=== PATIENT | male | born 1985 | race Caucasian/White ===

== ENCOUNTER → 2020-04-12 19:20 | Outpatient (CLI) | payer OTHER, SELFPAY ==
[2020-04-12 20:10] LABS: Strep Scrn Group A (Rapid) Negative (Negative)
[2020-04-14 13:37] LABS: Covid-19 Nasal PCR Sendout Lex NOT DETECTED
== END ==
PROVIDERS: PCP Nurse Practitioner; Visit Provider Nurse Practitioner
DX: Z03.818 Encounter for observation for suspected exposure to other biological agents ruled out (principal)
CPT/HCPCS: 87430; U0004

== ENCOUNTER 2020-07-04 20:38 | Emergency (ER) | payer OTHER, SELFPAY ==
[2020-07-04 20:45] VITALS: BP 122/93; PULSE 99; RESP 20; TEMP 37; O2SAT 98; BMI 25.1
--- NOTE | 2020-07-04 21:00 | HMH.EDUTC ---
[facility] [place] Clinical Impression: Encounter for laboratory testing for COVID-19 virus Disposition: Home, Self-Care Condition on Discharge: Good Instructions: DI for COVID-19 (Suspected or Confirmed ), Coronavirus Disease 2019, Preventing the Spread of Coronavirus Discharge Instructions Additional Instructions: *Monitor Temp, Over the counter Motrin or Tylenol as directed/as needed Tylenol every 4 hours and Motrin every 6 hours (as long as your family doctor has told you that you can take it) for fever or pain. and straight to ER if unable to lower temp less than 101.0 after medication given Makes sure that you are drinking plenty of fluids like water and gatoraid to help with fluid loss from diarrhea ? Avoid fruit juices, as these do not replace minerals and can actually increase diarrhea. ? Children and adults can use sports drinks to replenish electrolytes. Younger children and infants should use products formulated for children, like oral rehydration solutions. ? Eat food in small amounts and let your stomach recover. ? Get lots of rest. You may feel tired or weak. ? No greasy or fried foods for the next 24-48 hours BRAT diet Bananas Rice Apples and [place] ? Make sure to drink plenty of liquids ? Return if needed ? Straight to ER if any life threatening symptoms ? Follow up with family doctor in the next 48-72 hours if no improvement or any worsening of symptoms Follow up IMMEDIATELY for new or worsening symptoms or no Noticeable improvement over the next 48-72 hours. 911 for difficulty breathing or swallowing You were tested for today for COVID19 your test result should be back in the next 24-48 hours, you may call to the [facility] to see if your test results are back in the next 48 hours [phone] [facility] hours are 9am-9pm You was given a handout with instructions for Self Quarantine and Self isolation for while you wait on test results and what to do if they are positive If you are positive the Health Dept will be contacting you also Referrals: Cm Cunningham MD [Primary Care Provider] - As needed Forms: Work/School Release Time of Disposition: 21:07 Medical Decision Making - Jose R Inquiry Pt receiving controlled substance: No Jose R was queried for this patient: No Vital Signs: 07/04/20 20:45 Temperature 98.6 F Temperature Source Oral Pulse Rate [Right Brachial] 99 H Respiratory Rate 20 Blood Pressure [Right Arm] 122/93 H Blood Pressure Mean [Right Arm] 102 Blood Pressure Source [Right Arm] Automatic Cuff Blood Pressure Position [Right Arm] Sitting 02 Sat by Pulse Oximetry 98 Oxygen Delivery Method Room Air Orders (Tests/Meds): ORDERS Category Date Time Status Covid-19 Nasal PCR ([facility]) Routine Lab 07/04/20 20:45 Received [facility] [place] - General Stated complaint: covid test Time Seen by Provider: 07/04/20 21:00 Mode of Arrival: Ambulatory Source of Information: Patient Limitations: No Limitations Description of Symptoms (Recalled from Triage Doc. by RN): PATIENT REQUESTING COVID TEST. 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
[2020-07-04 21:04] VITALS: BP 122/93; PULSE 99; RESP 20; TEMP 37; O2SAT 98
--- NOTE | 2020-07-05 14:39 | PC.NURSE ---
PATIENT NOTIFIED OF POSITIVE COVID RESULTS
== END 2020-07-04 21:10 | disposition home or self-care (01) ==
PROVIDERS: Emergency Provider Nurse Practitioner; PCP Family Medicine
DX: U07.1 COVID-19 (principal)
CPT/HCPCS: 99202; G0463; U0003

== ENCOUNTER 2020-10-04 16:04 | Emergency (ER) | payer OTHER, SELFPAY ==
--- NOTE | 2020-10-04 16:00 | ECG_ITS ---
APPROVED REPORT Exam: Resting ECG HR:105 bpm ECG Measurements Heart Rate 105 AXES UT 134 P 46 QRSd 82 QRS 9 QT 324 T 14 QTc 428 Conclusion Sinus tachycardia Otherwise normal ECG Electronically signed by : Klever Barahona, 10/04/2020 18:03:13
[2020-10-04 16:05] VITALS: BP 156/103; PULSE 105; RESP 18; O2SAT 98; BMI 26.4
--- NOTE | 2020-10-04 16:27 | XR_ITS ---
PROCEDURE INFORMATION: Exam: XR Chest Exam date and time: 10/04/2020 4:27 PM Age: 35 years old Clinical indication: Other: Chest pain TECHNIQUE: Imaging protocol: XR of the chest. Views: 1 view. COMPARISON: No relevant prior studies available. FINDINGS: Lungs: Granulomatous changes. No consolidation. Pleural spaces: Unremarkable. No pleural effusion. No pneumothorax. Heart/Mediastinum: Unremarkable. No cardiomegaly. Bones/joints: Unremarkable. IMPRESSION: No acute findings.
--- NOTE | 2020-10-04 16:28 | CT_ITS ---
PROCEDURE INFORMATION: Exam: CTA Chest With Contrast Exam date and time: 10/04/2020 4:28 PM Age: 35 years old Clinical indication: Patient HX: Chest pain x 2 weeks; Additional info: Chest pain into back TECHNIQUE: Imaging protocol: Computed tomographic angiography of the chest with contrast. 3D rendering (Not supervised by radiologist): MIP and/or 3D reconstructed images were created by the technologist. Radiation optimization: All CT scans at this facility use at least one of these dose optimization techniques: automated exposure control; mA and/or kV adjustment per patient size (includes targeted exams where dose is matched to clinical indication); or iterative reconstruction. Contrast material: ISOVUE 370; Contrast volume: 70 ml; Contrast route: INTRAVENOUS (IV); COMPARISON: CR XR CHEST PORTABLE 10/04/2020 5:03 PM FINDINGS: Pulmonary arteries: Normal. No pulmonary emboli. Aorta: Unremarkable. No aortic aneurysm. No aortic dissection. Lungs: Unremarkable. No consolidation. No masses. Pleural spaces: Unremarkable. No pneumothorax. No pleural effusion. Heart: Unremarkable. No cardiomegaly. No pericardial effusion. Lymph nodes: Scattered small lymph nodes. Bones/joints: Unremarkable. No acute fracture. Soft tissues: Unremarkable. IMPRESSION: No acute findings.
--- NOTE | 2020-10-04 16:32 | HMH.EDCP ---
ED Disposition Clinical Impression: Atypical chest pain Disposition: Still a Patient Condition on Discharge: Good Additional Instructions: Continue to use Tylenol and ibuprofen for pain and return to the ED for any new or worsening symptoms. Referrals: PCP,No [Primary Care Provider] - - Critical Care Critical Care Time: No Attestation: On 10/04/20, the high probability of a clinically significant, sudden or life threatening deterioration of the following system(s) required my full and direct attention, intervention and personal management. The time I documented below is in addition to time spent performing reported procedures but includes the following listed in this critical care notation. Medical Decision Making - Medical Records Medical records reviewed: Yes: I reviewed the patient's medical records. - Jose R Inquiry Pt receiving controlled substance: No Vital Signs: 10/04/20 16:05 Pulse Rate [Left Radial] 105 H Respiratory Rate 18 Blood Pressure [Right Arm] 156/103 H Blood Pressure Mean [Right Arm] 120 Blood Pressure Source [Right Arm] Automatic Cuff Blood Pressure Position [Right Arm] Sitting 02 Sat by Pulse Oximetry 98 Oxygen Delivery Method Room Air - Lab Data Lab Results 10/04/20 16:10: WBC 9.9, RBC 4.91, Hgb 14.3, Hct 43.0, MCV 87.7, MCH 29.2, MCHC 33.3, RDW 14.0, Plt Count 369, MPV 6.7 L, Neut % (Auto) 61.1, Lymph % (Auto) 31.0, Bowie % (Auto) 5.6, Eos % (Auto) 1.6, Baso % (Auto) 0.7, Neut # (Auto) 6.1, Lymph # (Auto) 3.1, Bowie # (Auto) 0.6, Eos # (Auto) 0.2, Baso # (Auto) 0.1 10/04/20 16:10: Sodium 139, Potassium 3.5, Chloride 104, Carbon Dioxide 28, Anion Gap 10.5, BUN 7 L, Creatinine 0.70, Estimated Creat Clear 178, Estimated GFR 128, Est GFR ( Amer) 154, Glucose 117 H, Calcium 9.3, Total Bilirubin 0.4, AST 42, ALT 34, Alkaline Phosphatase 76, Troponin I < 0.01, Total Protein 7.3, Albumin 4.4, Globulin 2.9, Albumin/Globulin Ratio 1.5 10/04/20 19:55: Troponin I < 0.01 Result diagrams: 10/04/20 16:10 10/04/20 16:10 Orders (Tests/Meds): ED MEDICATIONS Generic Name Dose Route Start Last Admin Trade Name Freq PRN Reason Stop Dose Admin Nicotine 21 mg 10/04/20 19:04 10/04/20 19:05 Nicotine 21mg/24hr Patch TD 11/03/20 19:03 21 mg DAILYP PRN Administration Nicotine Cravings Discontinued Medications Generic Name Dose Route Start Last Admin Trade Name Freq PRN Reason Stop Dose Admin Hydrocodone Bitart/Acetaminophen 2 tab 10/04/20 17:44 10/04/20 18:01 Hydrocodone/Apap 5/325 Mg Tablet PO 10/04/20 17:45 2 tab ONCE ONE Administration Iopamidol 70 ml 10/04/20 18:41 10/04/20 18:42 Iopamidol-370 (76%);100ml Bottle IV 10/04/20 18:42 70 ml ONCE ONE Administration Sodium Chloride 50 ml 10/04/20 18:41 10/04/20 18:42 0.9 % Sodium Chloride 50 Ml Vial IV 10/04/20 18:42 50 ml ONCE ONE Administration Sodium Chloride 10 ml 10/04/20 18:41 10/04/20 18:42 Sodium Chloride 0.9% 10ml Syr (Rad Only) IV 10/04/20 18:42 10 ml ONCE ONE Administration ORDERS Category Date Time Status CTA Chest [CT angio chest] Stat Cat Scan 10/04/20 16:28 Taken XR chest portable Stat Exams 10/04/20 16:27 Taken Troponin I Q3H Lab 10/04/20 22:30 Ordered Medical Decision Narrative: 35-year-old male who presents with chest pain in his chest and back. Patient's pain is consistent with musculoskeletal however has a concerning pattern. Differential includes musculoskeletal back pain, ACS, aortic dissection, pneumothorax, pneumonia, and others. Chest x-ray is unremarkable with no evidence of pneumonia, pneumothorax or other abnormality. His initial troponin is undetectable and there is no other laboratory data requiring acute correction. He was given [place] for pain and an IV fluid bolus. After interventions patient states that he feels much better. And CTA demonstrated no acute abnormalities concerning for pulmonary embolism or dissection or other a
[2020-10-04 16:46] LABS: Basophils # 0.1 K/mm3 (0-0.2); Basophils % 0.7 % (0.1-2.0); Chloride 104 mmol/L (98-107); Eosinophils # 0.2 K/mm3 (0.0-0.4); Eosinophils % 1.6 % (0.1-12.0); Hemoglobin 14.3 g/dL (14.1-18.0); Lymphocytes # 3.1 K/mm3 (0.7-4.5); Mean Corpuscular HGB Conc 33.3 g/dL (31.8-35.4); Mean Corpuscular Hemoglobin 29.2 pg (27.0-31.2); Mean Corpuscular Volume 87.7 fl (80-94); Mean Platelet Volume 6.7 fl (7.4-10.4); Monocytes # 0.6 K/mm3 (0.1-1.0); Monocytes % 5.6 % (1.7-9.3); Neutrophils # 6.1 K/mm3 (1.8-7.8); Neutrophils % 61.1 % (37.0-80.0); Platelet Count 369 K/mm3 (142-424); Potassium 3.5 mmoL/L (3.5-5.1); Red Blood Count 4.91 M/mm3 (4.60-6.20); Sodium 139 mmol/L (136-145); White Blood Count 9.9 K/mm3 (4.8-10.8)
[2020-10-04 16:48] LABS: Alanine Aminotransferase 34 U/L (12-78); Blood Urea Nitrogen 7 mg/dl (9-20); Creatinine Clearance Estimated 178 mL/min (50-200); Estimated Glomerular Filt Rate 128 ml/min (>60); GFR (African American) 154 ML/MIN (>60)
[2020-10-04 16:49] LABS: Albumin Level 4.4 g/dl (3.5-5.0); Albumin/Globulin Ratio 1.5 (1.1-1.8); Alkaline Phosphatase 76 U/L (38-126); Anion Gap 10.5 mEq/L (5-15); Aspartate Amino Transferase 42 U/L (17-59); Bilirubin,Total 0.4 mg/dl (0.2-1.3); Calcium 9.3 mg/dl (8.4-10.2); Carbon Dioxide 28 mmol/L (22.0-30.0); Globulin 2.9 g/dL (1.3-3.2); Glucose 117 mg/dl (74-100); Total Protein,Serum 7.3 g/dl (6.3-8.2)
--- NOTE | 2020-10-04 17:01 | PC.NURSE ---
Pt up to restroom
[2020-10-04 17:06] LABS: Troponin I < 0.01 ng/ml (0.00-0.034)
[2020-10-04 20:29] LABS: Troponin I < 0.01 ng/ml (0.00-0.034)
[2020-10-04 21:31] VITALS: BP 124/79; PULSE 88; RESP 18; TEMP 36.9; O2SAT 98
== END 2020-10-04 21:32 | disposition still patient (30) ==
PROVIDERS: Emergency Provider Student in an Organized Health Care Education/Training Program
DX: R07.89 Other chest pain (principal)
CPT/HCPCS: 71045; 71275; 80053; 84484; 85025; 93005; 99282; Q9967

== ENCOUNTER → 2021-01-10 10:58 | Outpatient (CLI) | payer OTHER, SELFPAY ==
--- NOTE | 2021-01-10 11:01 | XR_ITS ---
PROCEDURE: XR CHEST PORTABLE CLINICAL HISTORY: Shortness of breath and cough COMPARISON: CT CT ANGIO CHEST from 10/04/2020 CR XR CHEST PORTABLE from 10/04/2020 FINDINGS: The cardiomediastinal silhouette and pulmonary vascularity are within normal limits. The lungs are clear without infiltrates, suspicious nodules, or pleural effusions. No acute bony abnormalities. IMPRESSION: No acute findings. Dictated by: Elpidio Peacock MD 01/10/2021 11:53 Elpidio Peacock MD in [facility] 01/10/2021 11:53
== END ==
PROVIDERS: PCP Nurse Practitioner; Visit Provider Nurse Practitioner
DX: Z20.822 Contact with and (suspected) exposure to COVID-19 (principal); R06.02 Shortness of breath; R05 Cough
CPT/HCPCS: 71045; U0003

== ENCOUNTER 2022-12-06 23:41 | Emergency (ER) | payer OTHER, SELFPAY ==
[2022-12-06 23:44] VITALS: BP 150/110; PULSE 96; RESP 16; TEMP 36.9; O2SAT 98; BMI 26.4
[2022-12-06 23:52] VITALS: BMI 26.4
[2022-12-06 23:56] VITALS: BP 150/110; PULSE 110; RESP 16; TEMP 36.9; O2SAT 97
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
[2022-12-07 00:05] VITALS: BP 134/86; PULSE 110; RESP 20; O2SAT 95
[2022-12-07 00:11] LABS: Basophils # 0.1 K/mm3 (0-0.2); Basophils % 1.1 % (0.1-2.0); Eosinophils # 0.4 K/mm3 (0.0-0.4); Eosinophils % 4.3 % (0.1-12.0); Hematocrit 47.8 % (42.0-52.0); Hemoglobin 15.5 g/dL (14.1-18.0); Lymphocytes # 3.7 K/mm3 (0.7-4.5); Lymphocytes % 44.4 % (10-50); Mean Corpuscular HGB Conc 32.3 g/dL (31.8-35.4); Mean Corpuscular Hemoglobin 28.1 pg (27.0-31.2); Mean Corpuscular Volume 86.8 fl (80-94); Monocytes # 0.6 K/mm3 (0.1-1.0); Monocytes % 6.9 % (1.7-9.3); Neutrophils # 3.6 K/mm3 (1.8-7.8); Neutrophils % 43.2 % (37.0-80.0); Platelet Count 308 K/mm3 (142-424); Red Blood Count 5.51 M/mm3 (4.60-6.20); Red Cell Distribution Width 13.6 % (11.5-17.5); White Blood Count 8.3 K/mm3 (4.8-10.8)
[2022-12-07 00:14] LABS: Alanine Aminotransferase 66 U/L (12-78); Albumin Level 4.4 g/dl (3.5-5.0); Albumin/Globulin Ratio 1.5 (1.1-1.8); Alkaline Phosphatase 101 U/L (38-126); Anion Gap 12.5 mEq/L (5-15); Aspartate Amino Transferase 54 U/L (17-59); Bilirubin,Total 0.4 mg/dl (0.2-1.3); Blood Urea Nitrogen 7 mg/dl (9-20); Calcium 8.9 mg/dl (8.4-10.2); Carbon Dioxide 31 mmol/L (22.0-30.0); Chloride 102 mmol/L (98-107); Creatinine Clearance Estimated 153 mL/min (50-200); Estimated Glomerular Filt Rate 108 ml/min (>60); Ethyl Alcohol < 10 mg/dl (0-10); GFR (African American) 131 ML/MIN (>60); Globulin 2.9 g/dL (1.3-3.2); Glucose 88 mg/dl (74-100); Potassium 3.5 mmoL/L (3.5-5.1); Sodium 142 mmol/L (136-145); Total Protein,Serum 7.3 g/dl (6.3-8.2)
[2022-12-07 00:16] VITALS: BMI 26.4
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
[2022-12-07 01:00] VITALS: BP 130/98; PULSE 112; RESP 18; O2SAT 95
[2022-12-07 01:12] LABS: Microscopic, Urine URINE MICROSCOPIC (MICROSCOPIC)
--- NOTE | 2022-12-07 01:12 | PC.NURSE ---
Pt resting in bed with eyes closed
[2022-12-07 01:16] LABS: Appearance,Urine CLEAR (Clear); Bilirubin,Urine Negative (Negative); Blood, Urine Negative (Negative); Color,Urine YELLOW (Yellow); Glucose,Urine (UA) Negative (Negative); Ketones,Urine Negative (Negative); Leukocyte Esterase,Urine Negative (Negative); Nitrate,Urine Negative (Negative); Protein,Urine Negative (Negative); Urobilinogen,Urine 0.2 EU/dl (0.2)
[2022-12-07 01:31] VITALS: BP 119/79; PULSE 112; RESP 20; O2SAT 96
[2022-12-07 01:31] LABS: Bacteria,Urine Trace /lpf; RBC,Urine Occasional #/hpf (0-3); WBC,Urine Occasional #/hpf (0-3)
--- NOTE | 2022-12-07 01:31 | PC.NURSE ---
Updated pt . No needs voiced at this time.
--- NOTE | 2022-12-07 01:38 | PC.NURSE ---
Dr. Sharp at to update pt/family
[2022-12-07 01:40] VITALS: BP 119/79; PULSE 111; RESP 14; TEMP 36.9; O2SAT 97
[2022-12-07 01:43] LABS: Amphetamine/Metha Screen,Urine Negative ng/ml (<1000)
[2022-12-07 01:44] LABS: Barbiturates Screen,Urine Negative ng/ml (<200)
[2022-12-07 01:45] LABS: Benzodiazepines Screen,Urine Positive ng/ml (<200); Cannabinoid Screen,Urine Negative ng/ml (<50)
[2022-12-07 01:46] LABS: Cocaine Screen,Urine Negative ng/ml (<300)
[2022-12-07 01:48] LABS: Methadone Screen,Urine Negative ng/ml (<300); Opiate Screen,Urine Positive ng/ml (<300)
[2022-12-07 01:49] LABS: Phencyclidine Screen,Urine Negative ng/ml (<25)
[2023-02-05 10:31] LABS: POC Glucose,Bedside 145 (70-110)
== END 2022-12-07 01:45 | disposition home or self-care (01) ==
PROVIDERS: Emergency Provider Emergency Medicine; PCP Family Medicine
DX: S06.0X0A Concussion without loss of consciousness, initial encounter (principal); M54.2 Cervicalgia; V47.5XXA Car driver injured in collision with fixed or stationary object in traffic accident, initial encounter; F90.9 Attention-deficit hyperactivity disorder, unspecified type; F17.200 Nicotine dependence, unspecified, uncomplicated
CPT/HCPCS: 70450; 71045; 71275; 72125; 72128; 72131; 72170; 74177; 80053; 80305; 81001; 82962; 85025; 96360; 99284; 99285; Q9967

== ENCOUNTER 2025-02-11 16:58 | Outpatient (CLI) | payer BC, SELFPAY ==
--- OUTSIDE RECORDS SUMMARY | 2025-02-11 17:02 | XMS_ITS | Clinical Summary ---
Author Organization [facility] Address [address] [place] [address] Care Team Providers Care Health Actuary Name Role Phone Provider, No Known Primary Care Provider Unavail able Allergies Active Allergy Reactions Criticality Noted Date Comments Agnieszka Lee 01/14/2017 Medications gabapentin (NEURONTIN) 800 MG tablet Take 800 mg by mouth 3 (Three) Times a Day. Active HYDROcodone-ernesto taminophen (NORCO) 7.5-325 MG per tablet Take 1 tablet by mouth Every 6 (Six) Hours As Needed for Moderate Pain (4-6). Active Social History Tobacco Use Types Packs/Day Years Used Date Smoking Tobacco: Every Day Cigarettes Alcohol Use Standard Drinks/Week Comments No 0 (1 standard drink = 0.6 oz pur e alcohol) Abuse Screen Answer Date Recorded Unsafe at Home or Work/School Not on file Feels Threatened by Someone? Not on file 04/2023 Does Anyone Keep You from Co ntacting Others or Doint Things Outside the Home? Not on file 03/21/2023 Physical Sign of Abuse Present Not on file 1 Housing Stability Answer Date Recorded Current Living Arrangements Not on file 03/11 Potentially Unsafe Housing Conditions Not on jennifer e 03/21/2023 Family and Community Support Answer Jm e Recorded Help with Day-to-Day Activities Not on file 03/21/2023 Lonely or Isolated Not on file 03/21/2023 Employment Answer Date Recorded Do you want help finding or keeping work or a darryl b? Not on file 03/21/2023 Disabilities Answer Date Recorded Concentrating, Remembering, or Making Decisions Difficulty Not on file 03/21/2023 Doing Errands Independently Difficulty Not on fi le 03/21/2023 Education Answer Date Recorded Help with school or training? Not on file Preferred Language Not on file 03/21/2023 Sex and Gender Information Value Date Recorded Sex Assigned at Not on file Legal Sex Male 12:24 AM EDT Gender Identity Not on file Sexual Orientation Not on file Last Filed Vital Signs Vital Sign Reading Time Taken Comments Blood Pressure 125/75 01/14/2017 12:24 AM EDT Pulse 80 01/14/2017 12:24 AM EDT Temperature 36.7 C (98 F) 01/14/2017 12:24 AM EDT Respiratory Rate 20 01/14/2017 12:24 AM EDT Oxygen Saturation 99% 01/14/2017 12:24 AM EDT Inhaled Oxygen Concentration - - Weight 78.5 kg (173 lb) 01/14/2017 12:24 AM EDT Height 180.3 cm (5' 11 ) 01/14/2017 12:24 AM EDT Body Mass Index 24.13 01/14/2017 12:24 AM EDT Plan of Treatment Health Maintenance Due Date Last Done Comments ANNUAL PHYSICAL 1984 HEPATITIS C SCREENING 1984 TDAP/TD VACCINES (1 - Tdap) 01/23/2003 COVID-19 Vaccine (2023-2 5 season) 2024 INFLUENZA VACCINE 03/11/2025 Pneumococcal Vaccine 0-49 Aged Out No longer eligible based on patient's age to complete this topic Care Teams Health Actuary Relationship Specialty Start Date End Date Provider, No Known [facility] [place] [place] [address] PCP - General 01/14/17
--- OUTSIDE RECORDS SUMMARY | 2025-02-11 17:02 | XMS_ITS | Clinical Summary ---
Author Organization [facility] Address [address] [place] [address] Phone Care Team Providers Care Hardscape Foreman Name Role Phone Unavailable Primary Care Provider Unavailabl e Allergies Active Allergy Reactions Criticality Noted Date Comments Codeine 01/25/2017 Medications sulfamethoxazole -trimethoprim (SULFAMETHOXAZOL E-TRIMETHOPRIM) 800-160 mg per tablet Take by mouth every 12 hours. Active GABAPENTIN (NEURONTIN ORAL) Take by mouth. Active Medical History Medical History Date Comments Restless leg syndrome Social History Tobacco Use Types Packs/Day Years Used Date Smoking Tobacco: Every Day Cigarettes Smokeless Tobacco: Never Alcohol Use Standard Drinks/Week Comments No 0 (1 standard drink = 0.6 oz pur e alcohol) Sex and Gender Information Value Date Recorded Sex Assigned at Not on file Legal Sex Male 4:40 AM EDT Gender Identity Not on file Sexual Orientation Not on file Obstetrics History Last Filed Vital Signs Vital Sign Reading Time Taken Comments Blood Pressure 147/95 10/08/2023 12:48 PM EDT Pulse 94 10/08/2023 12:38 PM EDT Temperature 36.8 C (98.2 F) 10/08/2023 12:48 PM EDT Respiratory Rate 18 10/08/2023 12:38 PM EDT Oxygen Saturation 97% 10/08/2023 12:38 PM EDT Inhaled Oxygen Concentration - - Weight 86.2 kg (190 lb) 10/08/2023 12:48 PM EDT Height 180.3 cm (5' 11 ) 10/08/2023 12:48 PM EDT Body Mass Index 26.5 10/08/2023 12:48 PM EDT Plan of Treatment Health Maintenance Due Date Last Done Comments Annual Wellness Exam 01/23/1987 DTaP/TDaP/Td (1 - Tdap) 01/23/2003 Hepatitis B Vaccine (1 of 3 - 19+ 3-dose series) 01/23/2003 COVID-19 Vaccine (1 - 2023-2 5 season) 2024 Influenza Vaccine (#1) 2025 Meningococcal B Vaccine Aged Out No l onger eligible based on patient's age to complete this topic Pneumococcal Vaccine 0-49 Aged Out No longer eligible based on patient's age to complete this topic Insurance [employer] [facility] [id number]
[2025-02-11 17:31] LABS: Hematocrit 47.5 % (42.0-52.0); Hemoglobin 16.4 g/dL (14.1-18.0); Immature Granulocytes % 0.2 %; Mean Corpuscular HGB Conc 34.5 g/dL (31.8-35.4); Mean Corpuscular Hemoglobin 29.4 pg (27.0-31.2); Mean Corpuscular Volume 85.3 fl (80-94); Nucleated Red Blood Cells % 0 %; Platelet Count 288 K/mm3 (142-424); Red Blood Count 5.57 M/mm3 (4.60-6.20); Red Cell Distribution Width-SD 41.6 fL; White Blood Count 8.8 K/mm3 (4.8-10.8)
[2025-02-11 19:15] LABS: Albumin Level 4.5 g/dl (3.5-5.0); Chloride 104 mmol/L (98-107)
[2025-02-11 19:16] LABS: Potassium 4.0 mmoL/L (3.5-5.1); Sodium 140 mmol/L (136-145)
[2025-02-11 19:18] LABS: Alanine Aminotransferase 34 U/L (12-78); Albumin/Globulin Ratio 1.7 (1.1-1.8); Alkaline Phosphatase 81 U/L (38-126); Anion Gap 12.0 mEq/L (5-15); Aspartate Amino Transferase 35 U/L (17-59); Bilirubin,Total 0.6 mg/dl (0.2-1.3); Blood Urea Nitrogen 14 mg/dl (9-20); Carbon Dioxide 28 mmol/L (22.0-30.0); Creatinine,Serum 0.80 mg/dl (0.66-1.25); Estimated Glomerular Filt Rate 107 ml/min (>60); GFR (African American) 129 ML/MIN (>60); Globulin 2.6 g/dL (1.3-3.2); Total Protein,Serum 7.1 g/dl (6.3-8.2)
[2025-02-11 19:19] LABS: Calcium 9.4 mg/dl (8.4-10.2); Glucose 90 mg/dl (74-100); Magnesium 2.1 mg/dl (1.6-2.3)
[2025-02-11 19:34] LABS: Triiodothryronine (T3) Uptake 34 % (23.5-40.5)
[2025-02-11 19:35] LABS: Free Thyroxine Index 2.7 ug/dL (5.93-13.13); T4 (Thyroxine) 7.8 ug/dl (5.53-11.0); Triiodothryronine (T3) Uptake 34 % (23.5-40.5)
[2025-02-11 19:36] LABS: T4 (Thyroxine) 7.7 ug/dl (5.53-11.0)
[2025-02-11 19:49] LABS: Thyroid Stimulating Hormone 2.75 uIU/mL (0.465-4.68)
[2025-02-11 19:50] LABS: Thyroid Stimulating Hormone 2.74 uIU/mL (0.465-4.68)
[2025-02-11 20:11] LABS: Hemoglobin A1C 5.2 % (4.0-6.0)
== END 2025-02-11 23:59 | disposition home or self-care (01) ==
LOC: LAB 17:00
PROVIDERS: PCP Nurse Practitioner; Visit Provider Nurse Practitioner
DX: F90.9 Attention-deficit hyperactivity disorder, unspecified type (principal); D89.89 Other specified disorders involving the immune mechanism, not elsewhere classified; M62.838 Other muscle spasm; E16.2 Hypoglycemia, unspecified; R53.83 Other fatigue
CPT/HCPCS: 36415; 80053; 83036; 83735; 84436; 84443; 84479; 85025; 86225; 86235

== ENCOUNTER 2025-02-18 16:14 | Emergency (ER) | payer BC, SELFPAY ==
--- NOTE | 2025-02-18 16:12 | ECG_ITS ---
APPROVED REPORT Exam: Resting ECG HR:100 bpm ECG Measurements Heart Rate 100 AXES MI 138 P 55 QRSd 96 QRS 21 QT 318 T 49 QTc 375 Conclusion SINUS TACHYCARDIA ABNORMAL RHYTHM ECG UNCONFIRMED REPORT Electronically signed by : CHRISSY NARVAEZ, 02/19/2025 00:41:09
[2025-02-18 16:17] VITALS: BP 154/96; PULSE 80; RESP 16; TEMP 36.6; O2SAT 96; BMI 27.8
--- NOTE | 2025-02-18 16:25 | XR_ITS ---
PROCEDURE INFORMATION: Exam: XR Chest Exam date and time: 02/18/2025 4:56 PM Age: 40 years old Clinical indication: Other: SOA, pain; Additional info: SOA, vapes TECHNIQUE: Imaging protocol: Radiologic exam of the chest. Views: 1 view. Total images: 1 COMPARISON: CR XR CHEST PORTABLE 12/07/2022 12:27 AM FINDINGS: Lungs: No consolidation. Pleural spaces: No pleural effusion. No pneumothorax. Heart/Mediastinum: No cardiomegaly. Bones/joints: Unremarkable. IMPRESSION: No acute cardiopulmonary abnormalities.
--- OUTSIDE RECORDS SUMMARY | 2025-02-18 16:25 | XMS_ITS | Clinical Summary ---
[facility] Address [address] [place] [address] Care Team Providers Care Proof Coins Inspector Name Role Phone Provider, No Known Primary [...] Tdap) 01/23/2003 COVID-19 Vaccine (2023-2 5 season) 2025 INFLUENZA VACCINE 03/11/2025 Pneumococcal Vaccine 0-49 Aged Out No longer eligible based on patient's age to complete this topic Care Teams Proof Coins Inspector Relationship Specialty Start Date End Date Provider, No Known [facility] [place] [address] PCP - General 01/14/17
--- OUTSIDE RECORDS SUMMARY | 2025-02-18 16:25 | XMS_ITS | Clinical Summary ---
Author Organization [facility] Address [address] [place] [address] Phone Care Team Providers Care Clerical Adjuster Name Role Phone Unavailable Primary Care Provider [...] COVID-19 Vaccine (1 - 2023-2 5 season) 2025 Influenza Vaccine (#1) 2025 Meningococcal B Vaccine Aged Out No l onger eligible based on patient's age to complete this topic Pneumococcal Vaccine 0-49 Aged Out No longer eligible based on patient's age to complete this topic Insurance AETNA [facility] [address]
--- OUTSIDE RECORDS SUMMARY | 2025-02-18 16:25 | XMS_ITS | Patient Health Record ---
[facility] [address] [place] [id number] Care Team Providers Care Business Professor Name Role Phone Florin Russell Primary Care Provider Allergies Allergen (clinical drug ingredient) Drug/Non Drug Allergy documented on EMR Reaction Allergy Type Onset Date Status codeine Codeine Unknown Drug Allergy Active Reason For Referral No Information Medications Medication SIG (Take, Route, Frequency, Duration) Notes Start Date End Date Status methylPREDNISolone 4 MG as directed 03/02/2022 Active Amoxicillin-Pot Clavulanate 875-125 MG 1 tab(s) orally every 12 hours; Duration: 10 day(s) 03/02/2022 Active predniSONE 20 MG 1 tab orally BID x 5 days then daily x 5 days; Duration: 10 days 01/07/2021 Not-Taking Medrol 4 MG as directed orally daily; Duration: 6 days 08/12/2021 Not-Taking Symbicort 80-4.5 MCG/ACT 2 puff(s) inhal ed 2 times a day; Duration: 30 day(s) 08/01/2018 Active OLANZapine 5 MG 1 tab(s) orally once a day; Duration: 30 day(s) Active Ventolin HFA 108 (90 Base) MCG/ACT 2 puff(s) inhaled 4 times a day and as needed; Duration: 25 Active Spiriva Respimat 1.25 MCG/ACT 2 puff(s) inhaled once a day; Duration: 30 day(s) 01/26/2021 Active Vraylar 3 MG TAKE ONE CAPSULE BY MOUTH ONCE A DAY Active Adderall 20 MG 1 tab(s) orally once daily; Duration: 30 day(s) 05/03/2022 Active Gabapentin 800 MG 1 tablet orally Three times a day; Duration: 30 day(s) 05/03/2022 Active Meloxicam 15 MG 1 tab(s) orally once a day; Duration: 30 day(s) Active buPROPion HCl ER (SR) 150 MG 1 tab(s) orally qhs 0 08/12/2021 Active Problems Problem Type SNOMED Code ICD Code Onset Dates Problem Status W/U Status Risk Notes Problem Acute exacerbation of chronic obstructive airways disease (508469192) COPD with exacerbation (J44.1) Active confirmed Problem Mixed anxiety and depressive disorder (811157909) Depression with anxiety (F41.8) Active confirmed Problem Restless legs syndrome (59251398) Restless leg syndrome (G25.81) Active confirmed Problem Acute exacerbation of chronic obstructive airways disease (614353786) COPD exacerbation (J44.1) Active confirmed Problem Sciatica (75179212) Lumbago with sciatica, right side (M54.41) Active confirmed Problem Generalized anxiety disorder (51407696) Generalized anxiety disorder (F41.1) Active confirmed Problem Primary insomnia (8563555) Primary insomnia (F51.01) Active confirmed Problem Right side sciatica (815216478313271) Sciatica, right side (M54.31) Active confirmed Problem Tobacco dependence (21789752) Tobacco dependence (F17.200) Active confirmed Problem Chronic pain (26535356) Other chronic pain (G89.29) Active confirmed Problem Bronchitis (76242202) Bronchitis (J40) Active confirmed Problem Tension-type headache (634307827) Acute non intractable tension-type headache (G44.209) Active confirmed Problem Bipolar affective disorder, currently depressed, moderate (149639820) Bipolar affective disorder, currently depressed, moderate (F31.32) Active confirmed Problem Attention deficit hyperactivity disorder (610176903) Adult ADHD (F90.9) Active confirmed Problem Bipolar disorder in remission (03396334) Bipolar disorder in remission (F31.70) Active confirmed Problem Chronic obstructive pulmonary disease (33457160) Stage 2 moderate COPD by GOLD classification (J44.9) Active confirmed Plan Of Treatment No Information Insurance Providers Payer Name Payer Address Payer Phone Subscriber Number Group Number Insured Name Patient Relationship to Insured Coverage Start Date Coverage End Date [employer] [facility] [id number] [place], [place] [phone] [id number] CATALINA GALLEGOS Self - patient is the insured Medical (General) History Medical History History ICD Code Restless Leg Syndrome Tobacco use disorder Asthma covid 2020 Anxiety disorder ADHD Surgical History Surgery Date(Month/Year)
--- NOTE | 2025-02-18 16:31 | [facility].EDCP ---
Discharge Plan Disposition Patient Disposition: Home, Self-Care Condition: Good Prescriptions Prescriptions: No Action gabapentin 800 mg tablet 800 mg PO TID Qty: 90 3RF cyclobenzaprine 10 mg tablet See Rx Instructions .ROUTE .COMPLEX Qty: 60 0RF Dose Instruction: TAKE ONE TABLET BY MOUTH 3 TIMES A DAY NEEDED FOR MUSCLE SPASM Rx Instructions: TAKE ONE TABLET BY MOUTH 3 TIMES A DAY NEEDED FOR MUSCLE SPASM dextroamphetamine-amphetamine [Adderall] 20 mg tablet 20 mg PO BID Qty: 30 0RF Rx Instructions: administer doses at least 4-6 hours apart Referrals Follow up/Referrals: Provider,Referral, MD [Primary Care Provider, Medical] - See instructions Activity Restrictions/Add. Instructions Additional Instructions/Restrictions: Follow-up with PCP Tylenol ibuprofen as needed If symptoms worsen or do not improve return Clinical Impressions Clinical Impression: Acute upper back pain Chest pain Qualifiers: Chest pain type: unspecified Qualified Code(s): R07.9 - Chest pain, unspecified Instructions Patient Instructions: DI for Atypical Chest Pain, DI for Thoracic Back Pain Print Language Print Language: Amharic Discharge ED Provider: Laurie Franklin HPI <Wilmer Prakash ([facility]), [employer] - Last Filed: 02/18/25 19:47> General Chief Complaint: Chest Pain Stated Complaint: Chest Pain Time Seen by Provider: 02/18/25 16:24 Mode of Arrival: Ambulatory Source of Information: Patient and Spouse Description of Symptoms (Recalled from ER Triage Doc. by RN): Pt stated he was up all night with horrible back pain 10/10. Stated that back pain turned into chest pain around 1500 today. Pt states it is a 10/10. stabbing pain that radiates around to his back and down to his left knee. Pt also c/o nausea but denies vomiting. History of Present Illness HPI narrative: 40-year-old male presents for complaints of upper back pain that started last night and this morning pain was in left chest radiating to back. Patient states it doubles him over pain 10-10 stabbing and radiates from chest to back and down to his left knee. Patient states when the pain happens he does get nauseous but does not vomit Related Data Previous Rx's ?Medication ?Instructions ?Recorded gabapentin 800 mg tablet 800 mg PO TID Pain #90 tabs 01/26/23 cyclobenzaprine 10 mg tablet See Rx Instructions .Route 10/17/23 .COMPLEX #60 tabs dextroamphetamine-amphetamine 20 20 mg PO BID adhd #30 tabs 03/28/23 mg tablet (Adderall) Allergies Allergy/AdvReac Type Severity Reaction Status Date / Time No Known Allergies Allergy Verified 01/26/23 11:33 <Laurie Franklin DO - Last Filed: 02/23/25 16:17> History of Present Illness HPI narrative: 40-year-old male presents for complaints of chest pain that started last night and this morning pain was in left chest radiating to back. Patient nature. Patient denies any fevers cough or upper respiratory symptoms. Patient denies any abdominal pain nausea or diarrhea. Patient denies any history of heart disease. Patient denies evidence of blood clots. Patient denies any recent travel. Patient has no history of blood clots. PFSH <[facility] [employer] TEACHER - Last Filed: 02/18/25 19:47> [facility] Disclaimer: The information contained in this section may have been updated after the patient was seen, as this information can be updated by other users. Medical History , [employer]) MDD (major depressive disorder), recurrent, with melancholic features Attention Deficit Hyperactivity Disorder (ADHD) Restless leg syndrome Social History , [employer] TE[employer]ER) Smoking Status: Current every day smoker tobacco type: cigarettes packs per day: 1 alcohol intake: never substance use type: denies use current occupational status: employed and other Travel in the last 8 weeks?: None household members: significant other and children housing: house marital status: number of children: 5 Other Medical History Have you received the Flu Vaccine for this season: No Have you received the Pneumonia Vaccine: Yes <[facility] [employer] TEACHER - Last Filed: 02/18/25 19:47> ROS Obtained: Yes All systems reviewed & no additional complaints except as documented Constitutional Constitutional: Reports system reviewed and no additional complaints, except as documented and Reports as per HPI ENT Ears, Nose, Mouth, and Throat: Reports system reviewed and no additional complaints, except as documented Cardiovascular Cardiovascular: Reports system reviewed and no additional complaints, except as documented Respiratory Respiratory: Reports system reviewed and no additional complaints, except as documented Gastrointestinal Gastrointestingal: Reports system reviewed and no additional complaints, except as documented, as per HPI and nausea Musculoskeletal Musculoskeletal: Reports system reviewed and no additional complaints, except as documented, Reports as per HPI and Reports back pain Neurologic Neurologic: Reports system reviewed and no additional complaints, except as documented Endocrine Endocrine: Reports system reviewed and no additional complaints, except as documented Physical Exam <Wilmer Prakash ([facility]), [employer] TE[employer] - Last Filed: 02/18/25 19:47> General General appearance: alert and in no apparent distress Head Head exam: atraumatic Eye Eye exam: Present normal appearance ENT ENT exam: Present normal exam Respiratory Respiratory exam: Present normal lung sounds bilaterally Cardiovascular Cardiovascular exam: Present regular rate and normal rhythm Abdominal Exam Abdominal exam: Present soft and normal bowel sounds Neurological Exam Neurological exam: Present alert and oriented X3 Psychiatric Psychiatric exam: Present normal affect Skin Skin exam: Present warm Lymphatic Lymphatic Findings: no adenopathy HEART Score <Wilmer Prakash ([facility]), [employer] TE[employer]ER - Last Filed: 02/18/25 19:47> HEART Score HEART Score assessment performed?: Yes History (anamnesis): Slightly suspicious ECG: Normal Age: <45 years Risk factors: No known risk factors Troponin: </= normal limit HEART Score: 0 <Laurie Franklin DO - Last Filed: 02/23/25 16:17> HEART Score HEART Score: 0 Critical Care <Wilmer Prakash ([facility]), [employer] TE[employer]ER - Last Filed: 02/18/25 19:47> Critical Care Time Critical Care Time: No Medical Decision Making <Shilajustin tesfaye ([facility]), [employer] TE[employer]ER - Last Filed: 02/18/25 19:47> Medical Records Medical records reviewed: Yes I reviewed the patient's medical records. Jose R Inquiry Pt receiving controlled substance: No Vital Signs Vital Signs: 02/18/25 16:17 02/18/25 19:56 Temperature 97.9 F 98.0 F Temperature Source Oral Pulse Rate 100 H Pulse Rate [Left Radial] 80 Respiratory Rate 16 18 Blood Pressure 150/90 H Blood Pressure [Right Arm] 154/96 H Blood Pressure Mean [Right Arm] 115 Blood Pressure Source [Right Arm] Automatic Cuff Blood Pressure Position [Right Arm] Sitting 02 Sat by Pulse Oximetry 96 Oxygen Delivery Method Room Air Room Air Lab Data Lab results reviewed: Yes I reviewed the patient's lab results. Labs: Lab Results 02/18/25 16:16: WBC 13.6 H, RBC 5.72, Hgb 16.8, Hct 48.9, MCV 85.5, MCH 29.4, MCHC 34.4, RDW 13.6, Plt Count 365, MPV 8.1, Neut % (Auto) 77.7, Lymph % (Auto) 13.4, [place] % (Auto) 8.3, Eos % (Auto) 0.1, Baso % (Auto) 0.1, Neut # (Auto) 10.6 H, Lymph # (Auto) 1.8, [place] # (Auto) 1.1 H, Eos # (Auto) 0.0, Baso # (Auto) 0.0, D-Dimer 0.39, Sodium 146 H, Potassium 4.0, Chloride 109 H, Carbon Dioxide 27, Anion Gap 14.0, BUN 9, Creatinine 0.90, Estimated Creat Clear 127, Estimated GFR 93, Est GFR ( Amer) 113, Glucose 96, Calcium 10.1, Total Bilirubin 0.6, AST 33, ALT 39, Alkaline Phosphatase 74, Troponin I < 0.01, Total Protein 8.3 H, Albumin 4.9, Globulin 3.4 H, Albumin/Globulin Ratio 1.4, Lipase 148, HCV Ab FREDERICK w/Rflx PCR Qn Negative, HIV Ag/Ab Combo Qual Negative 02/18/25 18:48: Troponin I < 0.01 02/18/25 16:16 02/18/25 16:16 Response Orders (Tests/Meds): ED MEDICATIONS Discontinued Medications Generic Name Dose Route Start Last Admin Trade Name Freq PRN Reason Stop Dose Admin Acetaminophen 1,000 mg 02/18/25 17:30 02/18/25 18:02 Acetaminophen 500mg Tab PO 02/18/25 17:31 1,000 mg ONCE ONE Administration Aspirin 325 mg 02/18/25 17:30 02/18/25 18:03 Aspirin 325mg Tablet PO 02/18/25 17:31 325 mg ONCE ONE Administration Belladonna Alkaloids 60 ml 02/18/25 18:04 02/18/25 18:06 Belladonna Alkaloids 60 Ml Ml PO 02/18/25 18:05 60 ml ONCE ONE Administration Methocarbamol 500 mg 02/18/25 17:31 02/18/25 18:02 Methocarbamol 500mg Tablet PO 02/18/25 17:32 500 mg ONCE ONE Administration ORDERS Category Date Time Status XR chest portable Stat Exams 02/18/25 16:25 Completed CBC w/Auto Diff [Complete Blood Count Auto Diff] Stat Lab 02/18/25 16:16 Completed CMP [Comprehensive Metabolic Panel] Stat Lab 02/18/25 16:16 Completed D-Dimer Stat Lab 02/18/25 16:16 Completed HIV Combo Stat Lab 02/18/25 16:16 Completed Hepatitis C Ab Qual. W/ RFX Stat Lab 02/18/25 16:16 Completed Lipase Stat Lab 02/18/25 16:16 Completed Trop I [Troponin I] Stat Lab 02/18/25 16:16 Completed Troponin I Q3H Lab 02/18/25 18:48 Completed MDM Narrative Medical Decision Narrative: In summary patient is a 40-year-old male who presents to the emergency department for evaluation of upper back pain radiating to the chest and arm and down to the knee. Patient is hemodynamically stable upon arrival, afebrile. Unremarkable physical exam. Differential diagnosis includes cardiac, gastric, musculoskeletal. Initial workup will be conducted with labs, EKG, chest x-ray. Initial inventions include muscle relaxers, pain meds, GI cocktail. Initial workup reviewed by ks labs unremarkable, chest x-ray normal EKG normal, cardiac enzymes normal. Upon repeat evaluation patient laying in bed eating chips talking with family. Given this patient will be discharged home follow-up with PCP <Laurie Franklin, - Last Filed: 02/23/25 16:17> Vital Signs Vital Signs: 02/18/25 16:17 02/18/25 19:56 Temperature 97.9 F 98.0 F Temperature Source Oral Pulse Rate 100 H Pulse Rate [Left Radial] 80 Respiratory Rate 16 18 Blood Pressure 150/90 H Blood Pressure [Right Arm] 154/96 H Blood Pressure Mean [Right Arm] 115 Blood Pressure Source [Right Arm] Automatic Cuff Blood Pressure Position [Right Arm] Sitting 02 Sat by Pulse Oximetry 96 Oxygen Delivery Method Room Air Room Air Lab Data Labs: Lab Results 02/18/25 16:16: WBC 13.6 H, RBC 5.72, Hgb 16.8, Hct 48.9, MCV 85.5, MCH 29.4, MCHC 34.4, RDW 13.6, Plt Count 365, MPV 8.1, Neut % (Auto) 77.7, Lymph % (Auto) 13.4, [place] % (Auto) 8.3, Eos % (Auto) 0.1, Baso % (Auto) 0.1, Neut # (Auto) 10.6 H, Lymph # (Auto) 1.8, [place] # (Auto) 1.1 H, Eos # (Auto) 0.0, Baso # (Auto) 0.0, D-Dimer 0.39, Sodium 146 H, Potassium 4.0, Chloride 109 H, Carbon Dioxide 27, Anion Gap 14.0, BUN 9, Creatinine 0.90, Estimated Creat Clear 127, Estimated GFR 93, Est GFR ( Amer) 113, Glucose 96, Calcium 10.1, Total Bilirubin 0.6, AST 33, ALT 39, Alkaline Phosphatase 74, Troponin I < 0.01, Total Protein 8.3 H, Albumin 4.9, Globulin 3.4 H, Albumin/Globulin Ratio 1.4, Lipase 148, HCV Ab FREDERICK w/Rflx PCR Qn Negative, HIV Ag/Ab Combo Qual Negative 02/18/25 18:48: Troponin I < 0.01 Response Orders (Tests/Meds): ED MEDICATIONS Discontinued Medications Generic Name Dose Route Start Last Admin Trade Name Freq PRN Reason Stop Dose Admin Acetaminophen 1,000 mg 02/18/25 17:30 02/18/25 18:02 Acetaminophen 500mg Tab PO 02/18/25 17:31 1,000 mg ONCE ONE Administration Aspirin 325 mg 02/18/25 17:30 02/18/25 18:03 Aspirin 325mg Tablet PO 02/18/25 17:31 325 mg ONCE ONE Administration Belladonna Alkaloids 60 ml 02/18/25 18:04 02/18/25 18:06 Belladonna Alkaloids 60 Ml Ml PO 02/18/25 18:05 60 ml ONCE ONE Administration Methocarbamol 500 mg 02/18/25 17:31 02/18/25 18:02 Methocarbamol 500mg Tablet PO 02/18/25 17:32 500 mg ONCE ONE Administration ORDERS Category Date Time Status XR chest portable Stat Exams 02/18/25 16:25 Completed CBC w/Auto Diff [Complete Blood Count Auto Diff] Stat Lab 02/18/25 16:16 Completed CMP [Comprehensive Metabolic Panel] Stat Lab 02/18/25 16:16 Completed D-Dimer Stat Lab 02/18/25 16:16 Completed HIV Combo Stat Lab 02/18/25 16:16 Completed Hepatitis C Ab Qual. W/ RFX Stat Lab 02/18/25 16:16 Completed Lipase Stat Lab 02/18/25 16:16 Completed Trop I [Troponin I] Stat Lab 02/18/25 16:16 Completed Troponin I Q3H Lab 02/18/25 18:48 Completed MDM Narrative Medical Decision Narrative: In summary patient is a 40-year-old male who presents to the emergency department for evaluation of chest pain, radiating into the back. Patient is hemodynamically stable upon arrival, afebrile. Unremarkable physical exam. Differential diagnosis includes but not limited to: ACS/CT, pleural effusion, gastritis, pulmonary embolism, amongst others Initial workup will be conducted with labs, EKG, chest x-ray. Initial inventions include muscle relaxers, pain meds, GI cocktail. Initial workup reviewed and interpreted by myself: CBC showed mild leukocytosis hemoglobin stable. Question if she started Bumex
[2025-02-18 16:35] LABS: Hematocrit 48.9 % (42.0-52.0); Hemoglobin 16.8 g/dL (14.1-18.0); Immature Granulocytes % 0.4 %; Mean Corpuscular HGB Conc 34.4 g/dL (31.8-35.4); Mean Corpuscular Hemoglobin 29.4 pg (27.0-31.2); Mean Corpuscular Volume 85.5 fl (80-94); Nucleated Red Blood Cells % 0 %; Platelet Count 365 K/mm3 (142-424); Red Blood Count 5.72 M/mm3 (4.60-6.20); Red Cell Distribution Width-SD 42.1 fL; White Blood Count 13.6 K/mm3 (4.8-10.8)
[2025-02-18 16:57] LABS: Alanine Aminotransferase 39 U/L (12-78); Albumin Level 4.9 g/dl (3.5-5.0); Albumin/Globulin Ratio 1.4 (1.1-1.8); Alkaline Phosphatase 74 U/L (38-126); Anion Gap 14.0 mEq/L (5-15); Aspartate Amino Transferase 33 U/L (17-59); Bilirubin,Total 0.6 mg/dl (0.2-1.3); Blood Urea Nitrogen 9 mg/dl (9-20); Calcium 10.1 mg/dl (8.4-10.2); Carbon Dioxide 27 mmol/L (22.0-30.0); Chloride 109 mmol/L (98-107); Creatinine Clearance Estimated 127 mL/min (50-200); Creatinine,Serum 0.90 mg/dl (0.66-1.25); Estimated Glomerular Filt Rate 93 ml/min (>60); GFR (African American) 113 ML/MIN (>60); Globulin 3.4 g/dL (1.3-3.2); Glucose 96 mg/dl (74-100); Potassium 4.0 mmoL/L (3.5-5.1); Sodium 146 mmol/L (136-145); Total Protein,Serum 8.3 g/dl (6.3-8.2)
[2025-02-18 17:01] LABS: D-Dimer 0.39 ug/mL (0.0-0.5)
[2025-02-18 17:23] LABS: Troponin I < 0.01 ng/ml (0.00-0.034)
[2025-02-18 17:49] LABS: Hepatitis C Ab Qual. W/ RFX NEGATIVE (Negative)
[2025-02-18] MEDS: METHOCARBAMOL 500MG TABLET 500 MG PO (18:02)
[2025-02-18] MEDS: ACETAMINOPHEN 500MG TAB 1000 MG PO (18:02)
[2025-02-18] MEDS: ASPIRIN 325MG TABLET 325 MG PO (18:03)
[2025-02-18] MEDS: BELLADONNA ALKALOIDS 60 ML ML PO (18:06)
[2025-02-18 18:26] LABS: Lipase 148 U/L (23-300)
[2025-02-18 19:33] LABS: Troponin I < 0.01 ng/ml (0.00-0.034)
[2025-02-18 19:56] VITALS: BP 150/90; PULSE 100; RESP 18; TEMP 36.7; O2SAT 100
== END 2025-02-18 19:57 | disposition home or self-care (01) ==
PROVIDERS: Nurse Practitioner Family; Emergency Provider Student in an Organized Health Care Education/Training Program
DX: R07.9 Chest pain, unspecified (principal); R00.0 Tachycardia, unspecified; M54.6 Pain in thoracic spine; R11.0 Nausea; F17.210 Nicotine dependence, cigarettes, uncomplicated
CPT/HCPCS: 71045; 80053; 83690; 84484; 85025; 85378; 86803; 87389; 93005; 99284